=== PATIENT | male | born 1985 | race Caucasian/White ===

== ENCOUNTER 2017-03-27 10:13 | Emergency (ER) | payer OTHER ==
[~2017-03-27] VITALS: Ht 185.4 cm; Wt 75.0 kg
[~2017-03-27 10:13] MED LIST: FLUO27.5 PO; IBUP-103 PO; TRAZ1TAB16 PO
[2017-03-27 10:20] VITALS: TEMP 36.8; Ht 185.4 cm; Wt 75.0 kg
[2017-03-27] MEDS ORDERED: KETOROLAC TROMETHAMINE 30 MG/ML VIAL IV STA (10:21)
[2017-03-27] MEDS ORDERED: ONDANSETRON INJ 2 MG/ML 2 ML VIAL IV STA (10:21)
[2017-03-27] MEDS ORDERED: SODIUM CHLORIDE 0.9% 1000ML 1,000 ML IV STA (10:21)
[2017-03-27 10:49] LABS: BASO % 0.1 %; BASO ABS # 0.01 K/uL (0-0.2); COMPLETE YES; EOS % 0.3 %; HEMATOCRIT 43.9 % (42-52); IG% 0.3 %; LYMPH % 17.1 %; LYMPH ABS # 1.91 K/uL (1.2-3.4); MEAN CELL VOLUME 82.5 fL (80-100); MEAN CORPUSCULAR HEMOGLOBIN 28.6 pg (25-34); MEAN CORPUSCULAR HGB CONC 34.6 g/dl (32-36); MEAN PLATELET VOLUME 9.8 fL (7.4-10.4); MONO % 9.7 %; NEUT % 72.5 %; PLATELET COUNT 263 K/uL (130-400); RED BLOOD COUNT 5.32 M/uL (4.7-6.1); WHITE BLOOD COUNT 11.17 K/uL (4.8-10.8)
--- NOTE | 2017-03-27 11:00 | DIAGNOSTIC IMAGING REPORT ---
ABD/PELVIS WITHOUT FOR STONE HISTORY:32 [place] pain COMPARISON: Gallbladder ultrasound 05/18/2015. TECHNIQUE: Multiple axial CT images of the abdomen and pelvis were obtained without the use of IV contrast. FINDINGS: Lung bases are clear. There is no gross pneumoperitoneum. Inferior cardiac chambers are unremarkable. The liver, spleen, pancreas and adrenal glands are within normal limits. There is moderate circumferential wall thickening of the gallbladder, 5 mm without gallstones identified. There is a 2 mm calculus within the left ureterovesicular junction which causes mild left-sided obstructive uropathy. No additional renal calculi are identified. Urinary bladder is unremarkable. The abdominal aorta is normal in both course and caliber. No pathologic adenopathy or bowel structures and. The appendix appears normal. Soft tissues are unremarkable. The bones appear to be intact. IMPRESSION: 1. 2 mm calculus of the left ureterovesicular junction causes mild left-sided obstructive uropathy. 2. Mild gallbladder wall thickening without cholelithiasis identified. This is a nonspecific finding and could be correlated with dedicated ultrasound if clinically indicated. 3. Normal appendix. The above report was generated using voice recognition software. It may contain grammatical, syntax or spelling errors. Electronically signed by: Ector John 03/27/2017 10:59 AM Dictated Date/Time: 03/27/2017 10:54 AM
[2017-03-27 11:06] LABS: ALT/SGPT 43 U/L (12-78); AST/SGOT 18 U/L (15-37); BLOOD UREA NITROGEN 11 mg/dl (7-18); BUN/CREATININE RATIO 11.3 (10-20); CALCIUM 8.7 mg/dl (8.5-10.1); CARBON DIOXIDE 27 mmol/L (21-32); CHLORIDE 109 mmol/L (98-107); GLUCOSE 98 mg/dl (70-99); POTASSIUM 4.1 mmol/L (3.5-5.1); SODIUM 140 mmol/L (136-145)
[2017-03-27 11:09] LABS: ALKALINE PHOSPHATASE 69 U/L (45-117)
--- NOTE | 2017-03-27 12:37 | EMERGENCY ROOM VISIT NOTE ---
History Report prepared by [employer]: Patricia Hager Under the Supervision of: Dr. Mamadou Sanz D.O. First contact with patient: 10:21 Chief Complaint: FLANK PAIN Stated Complaint: PAIN IN LEFT HIP,VOMITING History of Present Illness The patient is a 32 year old male who presents to the Emergency Room with complaints of severe and intermittent left hip pain starting last night. He reports pain radiation to the inner thigh. He also complains of left flank pain. The patient woke up during the night with the pain. He also had nausea, vomiting, and diarrhea. The pain lasted for about 3 hours. He took Tylenol and Imodium with some relief. The patient woke up this morning with severe pain. He reports worsening symptoms with movement and ambulation. He denies any fevers, chills, or any other complaints. Source of History: patient Onset: last night Position: other (left hip) Symptom Intensity: severe Timing: intermittent Modifying Factors (Worsening): movement, other (ambulation) Modifying Factors (Relieving): tylenol (with some relief), other (Imodium with some relief) Associated Symptoms: + nausea, + vomiting, + diarrhea, No fevers, No chills Review of Systems See HPI for pertinent positives & negatives. A total of 10 systems reviewed and were otherwise negative. Past Medical & Surgical Medical Problems: (1) Asthma (2) Headache (3) Hematemesis (4) Migraine Family History Diabetes mellitus Kidney disease Kidney stones Malignancy Social History Smoking Status: Never Smoker Marital Status: single Occupation Status: employed Current/Historical Medications No Active Prescriptions or Reported Meds Allergies Coded Allergies: Shellfish Allergy (Verified Allergy, Intermediate, Throat/tongue swelling. , 03/27/17) Physical Exam Vital Signs Date Time Temp Pulse Resp B/P (MAP) Pulse Ox O2 Delivery O2 Flow Rate FiO2 03/27/17 11:46 64 16 124/75 99 Room Air 03/27/17 10:20 36.8 66 18 134/81 95 Room Air Physical Exam CONSTITUTIONAL/VITAL SIGNS: Reviewed / noted above. GENERAL: Non-toxic in appearance. INTEGUMENTARY: Warm, dry, and [place]. HEAD: Normocephalic. EYES: without scleral icterus or trauma. ENT/OROPHARYNX: clear and moist. LYMPHADENOPATHY/NECK: Is supple without lymphadenopathy or meningismus. RESPIRATORY: Lungs clear and equal. CARDIOVASCULAR: Regular rate and rhythm. GI/ABDOMEN: Soft and nontender. No organomegaly or pulsatile mass. No rebound or guarding. Normal bowel sounds. EXTREMITIES: Warm and well perfused. BACK: Mild left CVA tenderness. NEUROLOGICAL: Intact without focal deficits. PSYCHIATRIC: normal affect. MUSCULOSKELETAL: Normally developed with good muscle tone. Medical Decision & Procedures ER Provider Diagnostic Interpretation: CT results as stated below per my review and radiologist interpretation: ABD/PELVIS WITHOUT FOR STONE HISTORY:32 [place] pain COMPARISON: Gallbladder ultrasound 05/18/2015. TECHNIQUE: Multiple axial CT images of the abdomen and pelvis were obtained without the use of IV contrast. FINDINGS: Lung bases are clear. There is no gross pneumoperitoneum. Inferior cardiac chambers are unremarkable. The liver, spleen, pancreas and adrenal glands are within normal limits. There is moderate circumferential wall thickening of the gallbladder, 5 mm without gallstones identified. There is a 2 mm calculus within the left ureterovesicular junction which causes mild left-sided obstructive uropathy. No additional renal calculi are identified. Urinary bladder is unremarkable. The abdominal aorta is normal in both course and caliber. No pathologic adenopathy or bowel structures and. The appendix appears normal. Soft tissues are unremarkable. The bones appear to be intact. IMPRESSION: 1. 2 mm calculus of the left ureterovesicular junction causes mild left-sided obstructive uropathy. 2. Mild gallbladder wall thickening without cholelithiasis identified. This is a nonspecific finding and could be correlated with dedicated ultrasound if clinically indicated. 3. Normal appendix. The above report was generated using voice recognition software. It may contain grammatical, syntax or spelling errors. Electronically signed by: Ector John 03/27/2017 10:59 AM Dictated Date/Time: 03/27/2017 10:54 AM Laboratory Results 03/27/17 10:35 Red Blood Count 5.32, Mean Corpuscular Volume 82.5, Mean Corpuscular Hemoglobin 28.6, Mean Corpuscular Hemoglobin Concent 34.6, Mean Platelet Volume 9.8, Neutrophils (%) (Auto) 72.5, Lymphocytes (%) (Auto) 17.1, Monocytes (%) (Auto) 9.7, Eosinophils (%) (Auto) 0.3, Basophils (%) (Auto) 0.1, Neutrophils # (Auto) 8.11, Lymphocytes # (Auto) 1.91, Monocytes # (Auto) 1.08, Eosinophils # (Auto) 0.03, Basophils # (Auto) 0.01 03/27/17 10:35 Test 03/27/17 10:21 03/27/17 10:35 White Blood Count 11.17 K/uL (4.8-10.8) Red Blood Count 5.32 M/uL (4.7-6.1) Hemoglobin 15.2 g/dL (14.0-18.0) Hematocrit 43.9 % (42-52) Mean Corpuscular Volume 82.5 fL (80-100) Mean Corpuscular Hemoglobin 28.6 pg (25-34) Mean Corpuscular Hemoglobin Concent 34.6 g/dl (32-36) Platelet Count 263 K/uL (130-400) Mean Platelet Volume 9.8 fL (7.4-10.4) Neutrophils (%) (Auto) 72.5 % Lymphocytes (%) (Auto) 17.1 % Monocytes (%) (Auto) 9.7 % Eosinophils (%) (Auto) 0.3 % Basophils (%) (Auto) 0.1 % Neutrophils # (Auto) 8.11 K/uL (1.4-6.5) Lymphocytes # (Auto) 1.91 K/uL (1.2-3.4) Monocytes # (Auto) 1.08 K/uL (0.11-0.59) Eosinophils # (Auto) 0.03 K/uL (0-0.5) Basophils # (Auto) 0.01 K/uL (0-0.2) RDW Standard Deviation 38.1 fL (36.4-46.3) RDW Coefficient of Variation 12.7 % (11.5-14.5) Immature Granulocyte % (Auto) 0.3 % Immature Granulocyte # (Auto) 0.03 K/uL (0.00-0.02) Anion Gap 4.0 mmol/L (3-11) Est Creatinine Clear Calc Drug Dose 114.6 ml/min Estimated GFR () 116.5 Estimated GFR (Non- 100.6 BUN/Creatinine Ratio 11.3 (10-20) Calcium Level 8.7 mg/dl (8.5-10.1) Total Bilirubin 0.3 mg/dl (0.2-1) Direct Bilirubin < 0.1 mg/dl (0-0.2) Aspartate Amino Transf (AST/SGOT) 18 U/L (15-37) Alanine Aminotransferase (ALT/SGPT) 43 U/L (12-78) Alkaline Phosphatase 69 U/L (45-117) Total Protein 6.8 gm/dl (6.4-8.2) Albumin 3.7 gm/dl (3.4-5.0) Lipase 348 U/L (73-393) Laboratory results as stated above per my review. Medications Administered Medications (Trade) Dose Ordered Sig/Rudy Route Start Time Stop Time Status Last Admin Dose Admin Sodium Chloride 1,000 ml @ 999 mls/hr Q1H1M STAT IV 03/27/17 10:21 03/27/17 11:21 DC 03/27/17 10:40 999 MLS/HR Ondansetron HCl (Zofran Inj) 4 mg NOW STAT IV 03/27/17 10:21 03/27/17 10:23 DC 03/27/17 10:40 4 MG Ketorolac Tromethamine (Toradol Inj) 30 mg NOW STAT IV 03/27/17 10:21 03/27/17 10:23 DC 03/27/17 10:40 30 MG ED Course 1021: Previous medical records were reviewed. The patient was evaluated in room B10. A complete history and physical examination was performed. Toradol Inj 30 mg IV, Zofran Inj 4 mg IV, Sodium Chloride 1000 ml @ 999 mls/hr IV 1225: On reevaluation, the patient is resting comfortably. I discussed the results and findings with the patient. He verbalized agreement of the treatment plan. He was discharged home. Medical Decision Medication Reconciliation: I attest that I have personally reviewed the patient' s current medication list. Blood pressure Screening: Patient was found to have normal blood pressure on screening and does not require follow-up. Differential considered: pancreatitis, hepatitis, or acute cholecystitis, AAA, UTI, pyelonephritis, kidney stones, appendicitis, diverticulitis, shingles, bowel obstruction mesenteric ischemia, intussusception,hernia, testicular torsion. This is a 32-year-old male who presents to the ED with a chief complaint of left -sided flank pain. The patient states that his symptoms started overnight. He reports some associated nausea and a little bit of diarrhea. He took some Motrin or ibuprofen last night it seemed to help a little. His pain came back today. He came in for evaluation. His vital signs are stable. His physical exam revealed some mild left CVA tenderness. No abdominal tenderness. CT scan abdomen and pelvis reveals a 1-2 mm left UVJ stone. CBC and complete metabolic panel were normal. The patient was treated with IV fluids, IV Zofran and IV Toradol. His symptoms have improved. He was felt to be stable for discharge. He was discharged with urine strainer. He will take ibuprofen as needed for pain. Impression Primary Impression: Renal colic Additional Impression: Left ureteral calculus Scribe Attestation The scribe's documentation has been prepared under my direction and personally reviewed by me in its entirety. I confirm that the note above accurately reflects all work, treatment, procedures, and medical decision making performed by me. Departure Information Dispostion Home / Self-Care Prescriptions No Active Prescriptions or Reported Meds Referrals Savanah Silverman D.O. (PCP) Forms HOME CARE DOCUMENTATION FORM, IMPORTANT VISIT INFORMATION Patient Instructions Kidney Stones Expectant Therapy, [facility] Additional Instructions Take ibuprofen every 6 hours as needed for pain. Strain urine if you want to see the stone. Follow-up with your doctor for further care and evaluation in 1-2 days. Return to the emergency department for worsening or new symptoms or any concerns. You have been examined and treated today on an emergency basis only. This is not a substitute for, or an effort to provide, complete comprehensive medical care. It is impossible to recognize and treat all injuries or illnesses in a single emergency department visit. It is therefore important that you follow up closely with your doctor. Call as soon as possible for an appointment. Problem Qualifiers
[2017-03-27 12:47] VITALS: BP 121/71; PULSE 67; O2SAT 100
[2017-03-27 12:58] LABS: URINE APPEARANCE CLEAR (CLEAR); URINE BILIRUBIN NEG (NEG); URINE COLOR YELLOW; URINE EPITHELIAL CELL AUTO 0-5 /lpf (0-5); URINE NITRITE NEG (NEG); URINE SPECIFIC GRAVITY 1.012 (1.000-1.030); UROBILINOGEN NEG (NEG); ZZUR CULT IF INDIC CLEAN CATCH NO
[2017-03-27 13:00] LABS: MANUAL MICROSCOPIC REQUIRED? NO; REVIEW REQ? NO
== END 2017-03-27 12:48 | disposition home or self-care (01) ==
LOC: C.EDB 10:14
DX: N20.1 Calculus of ureter (principal); N23 Unspecified renal colic; J45.909 Unspecified asthma, uncomplicated; Z83.3 Family history of diabetes mellitus; Z84.1 Family history of disorders of kidney and ureter